=== PATIENT | male | born 1955 | race Caucasian/White ===

== ENCOUNTER 2017-03-03 13:53 | Inpatient (IN) | payer MEDICARE ==
[~2017-03-03] VITALS: Ht 172.7 cm; Wt 127.5 kg
[~2017-03-03 13:53] MED LIST: ALPR0.5T99 PO; AMLO5TAB96 PO; ASPI81 PO; ATOR40TA PO; COZA100T PO; FISHOIL PO; FLUO.05%ST TOP; GLUCTAB PO; LASI20TA PO; NEUR600T PO; OMEP20TA PO; TERA2CAP3 PO; TOPR25TA2 PO; [UNRECOGNIZED DRUG - CODE] TOP
[2017-03-06] MEDS ORDERED: METF1000 PO (08:29)
[2017-03-06] MEDS ORDERED: ALLO100T PO (08:29)
--- NOTE | 2017-03-08 14:27 | MH ---
cc: Saeed BRUCE M.D. DATE OF ADMISSION: 03/13/2017 ADMITTING DIAGNOSIS Osteoarthritic degeneration right knee, now being admitted for right total knee arthroplasty. HISTORY OF PRESENT ILLNESS This pleasant 62-year-old morbidly obese diabetic male who smokes cigarettes is being admitted today for right total knee arthroplasty due to severe painful osteoarthritic degeneration right knee. PAST MEDICAL HISTORY 1. Asthma. 2. Diabetes. 3. Hypertension. 4. Neck and back pain. 5. Skin disorders. 6. Gout. MEDICATIONS Current medications include: 1. Alprazolam. 2. Amlodipine. 3. Atorvastatin. 4. Aspirin 81 mg. 5. Lasix. 6. Gabapentin. 7. Glimepiride. 8. Losartan. 9. Metformin. 10. Metoprolol. 11. Omeprazole. 12. Terazosin. 13. Allopurinol. 14. Fish oil. 15. Diflorasone diacetate. 16. Fluocinonide. PAST SURGICAL HISTORY Rotator cuff repair. SOCIAL HISTORY He does smoke cigarettes. He drinks some alcohol. ALLERGIES He has no known allergies. PHYSICAL EXAMINATION GENERAL: We find a 62-year-old male well-developed, well-nourished, oriented x3 complaining of pain in his right knee. VITAL SIGNS: Blood pressure 124/70, pulse 68 and regular, respirations 18, temperature 98.2, pulse oximetry 97% on room air. HEENT: Eyes PERRLA, EOMI. Ears, nose and mouth clear. NECK: Supple. LUNGS: Clear. HEART: Regular rate. ABDOMEN: Soft. Positive bowel sounds. Nontender. EXTREMITIES: The right knee is tender with crepitance on range of motion. Range of motion from -5 short of full extension to 80 degrees of flexion. He is neurovascularly intact to his toes. IMPRESSION The impression at this time is severe painful osteoarthritic degeneration right knee. PLAN Admission for right total knee arthroplasty today. The patient understands the procedure well and risks involved and understands to use Hibiclens scrub and Bactroban preoperatively. He plans on going home with home health care after surgery. He is given a prescription for postoperative pain and anticoagulation control in the office. Saeed Bruce MD JRR/CALVIN /2:04 PM /2:19 PM
[2017-03-13] MEDS ORDERED: ceFAZolin INJ 1,000 MG VIAL ONE (06:55)
[2017-03-13] MEDS ORDERED: FURO40TA PO (06:59)
[2017-03-13] MEDS ORDERED: GABA600T PO (06:59)
[2017-03-13] MEDS ORDERED: OMEP20TA PO (06:59)
[2017-03-13] MEDS ORDERED: LOSA100T PO (06:59)
[2017-03-13] MEDS ORDERED: [UNRECOGNIZED DRUG - CODE] TOPICAL (06:59)
[2017-03-13] MEDS ORDERED: METO25TA3 PO (06:59)
[2017-03-13] MEDS ORDERED: FISH1000 PO (06:59)
[2017-03-13] MEDS ORDERED: GLIM2TAB PO (06:59)
[2017-03-13] MEDS ORDERED: ATOR40TA16 PO (06:59)
[2017-03-13] MEDS ORDERED: AMLO5TAB2 PO (06:59)
[2017-03-13] MEDS ORDERED: TERA2CAP3 PO (06:59)
[2017-03-13] MEDS ORDERED: FLUO.05%ST TOPICAL (06:59)
[2017-03-13] MEDS ORDERED: ALPR0.5T3 PO (06:59)
[2017-03-13] MEDS ORDERED: ASPI1TAB69 PO (06:59)
[2017-03-13 07:00] VITALS: BP 116/75; PULSE 67; RESP 20; TEMP 98.6; O2SAT 96
[2017-03-13] MEDS ORDERED: POVIDONE IODINE 5% (ANTISEPSIS KIT) 4 APPLICATIONS EACH NARE PRN (07:00)
[2017-03-13] MEDS ORDERED: SODIUM CHLORID 0.9% 500 ML IV PRN (07:00)
[2017-03-13] MEDS ORDERED: INSULIN HUMAN REGULAR 1,000 UNITS/10 ML VIAL SQ PRN (07:00)
[2017-03-13] MEDS ORDERED: TRANEXAMIC ACID IV SCH ×3 (07:00→10:00)
[2017-03-13] MEDS ORDERED: CHLORHEXIDINE GLUCONATE 2 % 1 PACK (2 CLOTHS) TOPICAL PRN (07:00)
[2017-03-13] MEDS ORDERED: ceFAZolin 2 GM PREMIX 50 ML IV SCH (07:00)
[2017-03-13] MEDS ORDERED: SODIUM CHLORIDE 0.9% IV SCH ×3 (07:00→10:00)
[2017-03-13] MEDS ORDERED: METOPROLOL TARTRATE 25 MG TAB PO PRN (07:00)
[2017-03-13] MEDS ORDERED: LACTATED RINGER'S 1000 ML IV PRN (07:00)
[2017-03-13] MEDS ORDERED: CHLORHEXIDINE GLUCONATE 4% SOLN 120 ML BTL TOPICAL SCH (07:00)
[2017-03-13] MEDS ORDERED: BUPIVACAINE LIPOSO PF 1.3% INJ 20 ML, BUPIVACAINE PF 0.25% INJ 20 ML in SODIUM CHLORIDE... P-ARTICULR SCH (08:00)
[2017-03-13] MEDS ORDERED: MIDAZOLAM HCL 2 MG/2 ML VIAL ONE (08:03)
[2017-03-13] MEDS: LACTATED RINGER'S 1000 ML INJ 1,000 ML IV SCH ×2 (08:20→20:12)
--- NOTE | 2017-03-13 08:24 | HHI.FF ---
Face to Face Verification Diagnosis: (1) Status post right knee replacement Physical Therapy Gait training Knee: Total knee, Protocol: Right, Full weight bearing Canvas Knee Splint: When in bed & 2 pillows btw thighs Nursing RN: 3 days/week x 2 weeks Nursing: Klaudia teaching, Dressing changes Dressing Changes: Daily dressing change, 4x4s, Gauze, Paper tape I have seen patient Kamaljit Galeano Sr Martinez on 03/13/17. My clinical findings support the need for the requested home health care services because: Limited ability to care for self High risk of falls I certify that my clinical findings support that this patient is homebound because: Unsteady gait/balance Saeed Bruce MD March 13, 2017 08:24
[2017-03-13] MEDS ORDERED: MISC-163 (08:26)
[2017-03-13] MEDS ORDERED: WALKER WHEELS/F1 MIS (08:26)
[2017-03-13] MEDS ORDERED: CPMMACHINE (08:27)
[2017-03-13] MEDS ORDERED: SODIUM CHLORIDE 0.9% FLUSH 5 ML FLUSH IVF PRN (08:30)
[2017-03-13] MEDS ORDERED: diphenhydrAMINE HCL 50 MG/ML VIAL IV PRN (08:30)
[2017-03-13] MEDS ORDERED: Post-op Orders (for Pharmacy) MISC XX ONE (08:30)
[2017-03-13] MEDS ORDERED: NALOXONE HCL 0.4 MG/ML AMP IV PRN ×2 (08:30)
[2017-03-13] MEDS ORDERED: DIFLORASONE TOPICAL PRN (08:30)
[2017-03-13] MEDS ORDERED: TEMAZEPAM 15 MG CAP PO PRN (08:30)
[2017-03-13] MEDS ORDERED: ALLOPURINOL 100 MG TAB PO PRN (08:30)
[2017-03-13] MEDS ORDERED: ONDANSETRON HCL 4 MG/2 ML VIAL IVP PRN (08:30)
[2017-03-13] MEDS ORDERED: FLUOCINONIDE TOPICAL PRN (08:30)
[2017-03-13] MEDS ORDERED: ACETAMINOPHEN/HYDROcodone 325 MG/7.5 MG TAB PO PRN ×2 (08:30)
[2017-03-13] MEDS: ALPRAZolam 0.5 MG TAB PO SCH (09:00)
[2017-03-13] MEDS: ATORVASTATIN 40 MG TAB PO SCH (09:00)
[2017-03-13] MEDS: metFORMIN HCL 500 MG TAB PO SCH ×2 (09:00→15:58)
[2017-03-13] MEDS: METOPROLOL TARTRATE 25 MG TAB PO SCH ×2 (09:00→20:12)
[2017-03-13] MEDS: amLODIPine BESYLATE 5 MG TAB PO SCH (09:00)
[2017-03-13] MEDS: LOSARTAN 50 MG TAB PO SCH (09:00)
[2017-03-13] MEDS: ASPIRIN EC 81 MG TABEC PO SCH (09:00)
[2017-03-13] MEDS: FUROSEMIDE 40 MG TAB PO SCH (09:00)
[2017-03-13] MEDS: SODIUM CHLORIDE 0.9% FLUSH 5 ML FLUSH IVF SCH ×2 (09:00→20:12)
[2017-03-13] MEDS: PANTOPRAZOLE SOD 20 MG DELAYED RELEASE TAB PO SCH (09:00)
[2017-03-13] MEDS ORDERED: NON-FORMULARY DRUG (Omega-3 Fatty Acids (Fish Oil) 1 CAP) PO SCH (09:00)
[2017-03-13] MEDS: GABAPENTIN 300 MG CAP PO SCH ×2 (09:00→20:12)
[2017-03-13] MEDS ORDERED: BUPIVACAINE HCL PF 0.5% 30 ML VIAL NERV BLOCK ONE (11:34)
[2017-03-13] MEDS ORDERED: fentaNYL CITRATE 250 MCG/5 ML AMP ONE (11:42)
[2017-03-13] MEDS: MORPHINE SULFATE 30 MG/30 ML PCA IV SCH ×2 (11:44→20:14)
[2017-03-13] MEDS ORDERED: *morphine SULFATE 8 MG/ML PERIprocedure ONLY ONE (11:51)
[2017-03-13] MEDS ORDERED: PROPOFOL 200 MG/20 ML AMP IV ONE (12:00)
[2017-03-13] MEDS ORDERED: PHENYLEPH/NS 1000 MCG/10 ML SYR IV ONE (12:00)
[2017-03-13] MEDS ORDERED: LACTATED RINGER'S 1000 ML INJ 1,000 ML IV ONE (12:00)
[2017-03-13] MEDS ORDERED: NEOSTIGMINE 3 MG/3 ML SYR IV ONE (12:00)
[2017-03-13] MEDS ORDERED: ePHEDrine/NS 25 MG/5 ML SYR IV ONE (12:00)
[2017-03-13] MEDS ORDERED: ONDANSETRON HCL 4 MG/2 ML VIAL IV PUSH ONE (12:00)
[2017-03-13] MEDS: PCA - TOTAL MG DILAUDID DELIVERED PER SHIFT SCH ×2 (12:03→21:36)
--- NOTE | 2017-03-13 12:44 | RADRPT ---
EXAM DATE/TIME: 03/13/2017 11:50 [facility] COMPARISON: No previous studies available for comparison. INDICATIONS : Post operative right knee. MEDICAL HISTORY : None. SURGICAL HISTORY : None. ENCOUNTER: Initial ACUITY: 1 day PAIN SCORE: Non-responsive. LOCATION: Right knee. FINDINGS: Right total knee arthroplasty is present. Hardware is intact. Alignment is anatomic. CONCLUSION: Satisfactory appearance post right TKA Sergey Pandey MD on March 13, 2017 at 12:41 Board Certified Radiologist. This report was verified electronically.
[2017-03-13 13:00] VITALS: BP 116/78; PULSE 84; RESP 21; TEMP 95.6; O2SAT 96
[2017-03-13] MEDS: PCA - TOTAL MG MORPHINE DELIVERED PER SHIFT SCH ×2 (13:18→21:36)
--- NOTE | 2017-03-13 15:30 | PD.CONS ---
HPI Service [facility] Hospitalists Consult Requested By Dr. Seth Bruce Reason for Consult Medical Management Primary Care Physician Elmer Jimenez MD Diagnoses: History of Present Illness Ms. Henriquez is a pleasant 62 y/o female with HTN, diabetes, GERD, hyperlipidemia, osteoarthritis and hx of lacunar infarct remotely. She was admitted to [facility] on 03/13/17 for right knee arthroplasty performed by Dr. Bruce. [facility] Hospitalist team was consulted to help with managing the pts chronic medical issues. She is seen post -operatively and is without any specific complaints. Review of Systems Constitutional: DENIES: Fever, Chills Cardiovascular: DENIES: Chest pain, Lower Extremity Edema Gastrointestinal: DENIES: Abdominal pain, Nausea, Vomiting Genitourinary: DENIES: Hematuria Musculoskeletal: COMPLAINS OF: Joint pain Integumentary: DENIES: Rash Neurologic: DENIES: Headache Psychiatric: DENIES: Confusion Past Family Social History Past Medical History Hypertension Hyperlipidemia Type II diabetes mellitus with neuropathy, HgA1C was 5.7 on 12-05-16 Fatty liver GERD Osteoarthritis BPH Anxiety Psoriasis Hx of gout Carotid artery disease Hx of lacunar stroke Chronic lower back pain: Cervical stenosis/chronic neck pain: Hx of transient thrombocytopenia Vitamin D insufficiency Morbid obesity Hx of colon polyps Incidental pulmonary nodule, A CT scan of the abdomen on 06-26-16 showed a 5-6mm right lung nodule. A CT scan of the thorax on 12-23-16 showed a stable 5-7mm of the right mid lung. Past Surgical History Anal fistula repair Rotator cuff repair EGD/colonoscopy Reported Medications -Diflorasone Topical 0.05% Oint 1 Applic TOPICAL BID PRN -Fluocinonide Topical 0.05% Soln 1 Applic TOPICAL DAILY PRN -Fish Oil 1,000 Mg Cap 1 Cap PO BID -Terazosin 2 Mg PO HS -Omeprazole 20 Mg PO DAILY -Losartan 100 Mg PO DAILY -Aspirin 81 Mg PO DAILY -Amlodipine 5 Mg PO DAILY -Alprazolam 0.25 Mg PO DAILY PRN Anxiety -Metoprolol Tartrate 25 Mg PO BID Allopurinol 100 Mg Tab 100 Mg PO DAILY PRN -Metformin 1,000 Mg PO BIDPC --Glimepiride 2 Mg PO DAILY --Gabapentin 600 Mg PO TID PRN --Furosemide 40 Mg PO DAILY PRN edema --Atorvastatin 40 Mg PO HS Allergies: Coded Allergies: No Known Allergies (Verified , 03/13/17) Family History Noncontributory Social History (+)Regular alcohol use, 18-20 beers per week (+)Tobacco use, one can of chewing tobacco per day since age 24 Hx of smoking, 1-2ppd from age [age] Pt is Physical Exam Vital Signs Vital Signs Date Time Temp Pulse Resp B/P Pulse Ox O2 Delivery O2 Flow Rate FiO2 03/13/17 13:00 95.6 84 21 116/78 96 03/13/17 12:15 85 20 118/67 100 Room Air 03/13/17 12:00 86 12 124/75 98 Nasal Cannula 2 03/13/17 12:00 86 17 124/75 98 Room Air 03/13/17 11:45 87 17 123/68 98 Nasal Cannula 2 03/13/17 11:45 87 17 123/68 98 Room Air 03/13/17 11:44 15 03/13/17 11:38 99.1 91 17 122/81 98 03/13/17 11:38 99.1 91 17 122/81 98 Nasal Cannula 2 03/13/17 07:00 98.6 67 20 116/75 96 Physical Exam GENERAL: This is a well-nourished, well-developed patient, in no apparent distress. HEENT: Atraumatic. Normocephalic. No temporal or scalp tenderness. No scleral icterus. Airway patent. NECK: Trachea midline, supple, nontender. CARDIO: Regular. RESP: CTA bilaterally. No wheezes, rales, or rhonchi. ABD: +BS, soft, non-tender, nondistended. EXT: Right knee bandages are c/d/i NEURO: Awake and alert. Motor and sensory grossly within normal limits. Normal speech. Laboratory Laboratory Tests Test 03/13/17 06:55 Blood Type A POSITIVE Antibody Screen NEGATIVE Blood Bank Comment Imaging Last Impressions Knee X-Ray 03/13/17 0820 Signed Impressions: Service Date/Time: Monday, March 13, 2017 11:50 - CONCLUSION: Satisfactory appearance post right TKA Sergey Pandey MD Assessment and Plan Problem List: (1) Status post right knee replacement Status: Acute Plan: - Pt s/p right total knee arthroplasty on 03/13/[address] Bruce - Post-op pain control per Ortho - PT daily - IS - Constipation precautions - DVT prophylaxis (2) Diabetes Status: Chronic Plan: - NovoLog SSI - Pt takes Metformin 1000mg po BID and Amaryl 2mg po Daily (3) HTN (hypertension), benign Status: Chronic Plan: - Home meds continued - Monitor (4) Asthma Status: Acute Assessment and Plan Patient examined. Assessment and plan formulated with Lois Moore PA-C. I agree with the above. S/P RIGHT TKA. PT CONCERNED ABOUT URINE RETENTION. HE IS HOPING TO AVOID CATHETERIZATION. HYTRIN AND LASIX ORDERED NOW AND NURSING WILL MONITOR WITH BLADDER SCAN. Problem Qualifiers (1) Diabetes: Lois Moore March 13, 2017 15:30 Seth Vargas MD March 13, 2017 21:00
[2017-03-13 15:58] VITALS: BP 139/73; PULSE 93; TEMP 95.6; O2SAT 99
[2017-03-13] MEDS ORDERED: GLIMEPIRIDE 2 MG TAB PO SCH (16:00)
[2017-03-13 16:28] VITALS: O2SAT 99
[2017-03-13] MEDS ORDERED: FUROSEMIDE 20 MG TAB PO STA (17:11)
[2017-03-13] MEDS ORDERED: TERAZOSIN HCL 1 MG CAP PO ONE (17:15)
[2017-03-13] MEDS ORDERED: DEXTROSE 50% IN WATER 50 ML VIAL(D50) IV PUSH PRN (17:15)
[2017-03-13] MEDS ORDERED: GLUCAGON 1 MG/ML VIAL OTHER PRN (17:15)
[2017-03-13 20:00] VITALS: BP 136/76; PULSE 95; RESP 18; TEMP 98.8; O2SAT 95
[2017-03-13] MEDS: TERAZOSIN HCL 1 MG CAP PO SCH (20:12)
[2017-03-13] MEDS: MAGNESIUM HYDROXIDE SUSP 30 ML CUP PO SCH (20:12)
[2017-03-13] MEDS: POLYETHYLENE GLYCOL 17 GM PKG PO SCH (20:12)
[2017-03-13] MEDS: INSULIN ASPART SUPPLEMENTAL SCALE SQ SCH (20:12)
[2017-03-13] MEDS ORDERED: BETAMETHASONE DIPROPIONATE 0.05% CREAM 15 GM TOPICAL PRN (23:00)
[2017-03-14] VITALS (12 sets, daily range): BP systolic 67–127; BP diastolic 46–69; PULSE 87–116; RESP 16–19; TEMP 95.4–99.6; O2SAT 92–100
[2017-03-14] MEDS: PCA - TOTAL MG DILAUDID DELIVERED PER SHIFT SCH ×4 (06:00→23:57)
[2017-03-14] MEDS: PCA - TOTAL MG MORPHINE DELIVERED PER SHIFT SCH ×4 (06:10→23:57)
[2017-03-14] MEDS: INSULIN ASPART SUPPLEMENTAL SCALE SQ SCH ×4 (06:11→21:13)
[2017-03-14 08:46] LABS: HEMATOCRIT 35.4 % (39.0-51.0); REVIEW FLAG FINAL
[2017-03-14] MEDS: MAGNESIUM HYDROXIDE SUSP 30 ML CUP PO SCH ×2 (08:50→21:01)
[2017-03-14] MEDS: GABAPENTIN 300 MG CAP PO SCH ×2 (08:51→21:01)
[2017-03-14] MEDS: ALPRAZolam 0.5 MG TAB PO SCH (08:51)
[2017-03-14] MEDS: ASPIRIN EC 81 MG TABEC PO SCH (08:51)
[2017-03-14] MEDS: METOPROLOL TARTRATE 25 MG TAB PO SCH (08:51)
[2017-03-14] MEDS: PANTOPRAZOLE SOD 20 MG DELAYED RELEASE TAB PO SCH (08:51)
[2017-03-14] MEDS: FUROSEMIDE 40 MG TAB PO SCH (08:51)
[2017-03-14] MEDS: ATORVASTATIN 40 MG TAB PO SCH (08:51)
[2017-03-14] MEDS: amLODIPine BESYLATE 5 MG TAB PO SCH (08:51)
[2017-03-14] MEDS: metFORMIN HCL 500 MG TAB PO SCH (08:52)
[2017-03-14] MEDS: LOSARTAN 50 MG TAB PO SCH (08:52)
[2017-03-14] MEDS: POLYETHYLENE GLYCOL 17 GM PKG PO SCH ×2 (08:53→21:00)
[2017-03-14] MEDS: SODIUM CHLORIDE 0.9% FLUSH 5 ML FLUSH IVF SCH ×2 (08:53→21:00)
[2017-03-14] MEDS: ENOXAPARIN SODIUM 30 MG/0.3 ML SYRINGE SQ SCH ×2 (08:57→21:02)
[2017-03-14] MEDS ORDERED: GLIMEPIRIDE 2 MG TAB PO SCH (09:00)
[2017-03-14] MEDS ORDERED: SODIUM CHLOR 0.9% 1000 ML INJ 1,000 ML IV ONE (10:00)
[2017-03-14] MEDS ORDERED: RESP: ALBUTEROL 2.5 MG/IPRATROPIUM 0.5 MG NEB (SCH) NEB STA (10:00)
--- NOTE | 2017-03-14 10:08 | MP ---
cc: Saeed BRUCE M.D. DATE OF SURGERY 03/13/2017 PREOPERATIVE DIAGNOSIS Osteoarthritic degeneration right knee. POSTOPERATIVE DIAGNOSIS Osteoarthritic degeneration right knee. SURGERY PERFORMED Right total knee arthroplasty using Consensus components, size 5 femur, 4 tibia, 10 insert, with a size 2 x 7.5-mm patella with two batches of cobalt blue cement. SURGEON Dr. Bruce ASSOCIATE PRINCIPAL SERA Chiu ANESTHESIA General intubation and block. PROCEDURE After successful induction of anesthesia, the patient is placed on the operating room table in the supine position. The knee is prepped and draped in the usual manner. A tourniquet is inflated at the upper thigh and set to 300 mmHg pressure after exsanguination of the lower extremity. A longitudinal incision is made extending from 3 inches proximal to the superior pole of the patella, across the patella in longitudinal fashion, and down past the insertion of the tibial tubercle into the proximal tibia. The incision is carried down through subcutaneous tissue along the medial aspect of the patella and retinaculum, down through the capsule to expose the knee joint. The patella and patellar tendon are freed up enough to allow the patella to be inverted and retracted off the lateral side of the knee joint. The knee joint is left exposed. Small osteophytes are removed. All soft tissue is removed to allow proper position of the femoral and tibial cutting jig guide. The first femoral jig is then inserted along the distal end of the femur after first measuring to decide whether this is a small, medium, or large component. The notch is then drilled and the tibial cutting guide inserted into the femoral cutting guide, along with the ankle brace to allow for proper measurement of the tibial cutting surface that needed to be resected. Pins are inserted into the tibial cutting jig and femoral cutting jig to hold them in place. An oscillating saw is then used to resect the surface of the tibia. The surface of the tibia is then completely removed using sharp and blunt dissection. The anterior and posterior cuts of the femur are then made as well using an oscillating saw through the cutting guide. All guides are then removed and the varus/valgus angulation cutting guide applied to the femur for proper measurement of the proper amount of valgus. The anterior cutting guide for the femur is then inserted at the anterior femoral cuts made. Next, the first block trial is inserted into the femur to allow for proper condyle drill holes to be made which are then made followed by removal of the bone between the condyles using an oscillating saw as well as the bone removed at the most posterior surface of the condyle. After this, this guide is removed and the chamfer cuts made using the chamfer cutting guide from both anterior and posterior. Next, the femoral trial is then inserted, the tibial surface reflected anterior to expose the tibial surface and a tibial stem guide is inserted after first measuring for a standard, standard plus, large, or large plus surface to be used. After the stem is impacted the trial tibial surface is applied followed by the trial meniscal components. After full range of motion is found with the appropriate length meniscal components varying the patella is prepared by resecting the posterior aspect of the patella using an oscillating saw, inserting a trial. The trial is then removed and the cruciate cutting guide applied using the bur to cut the cruciate cuts. After cruciate cuts are made all trials are removed. The wound is irrigated copiously with antibiotic solution and Water Pik and the actual components inserted into place using Consensus components, size 5 femur, 4 tibia, 10 insert, with a size 2 x 7.5-mm patella. After the cement has hardened and the components are found to have full range of motion with no instability, no tourniquet utilized except for cementing and the total tourniquet time there was 11 minutes at 300 mmHg pressure. Meticulous hemostasis was achieved, 120 cc of Exparel inserted around the knee joint for extra pain control. The deep fascia was approximated with running #2 Quill, the subcutaneous tissue approximated using interrupted and running 2-0 and 4-0 Monocryl sutures, Steri-Strips, sterile dressing and knee immobilizer. DRAINS No drains utilized. ESTIMATED BLOOD LOSS 150 cc. COUNTS Sponge and suture counts were correct. The patient tolerated the procedure well and left the Operating Room in satisfactory condition. J. MD MARY Johnson/MICHEAL /11:23 AM /9:59 AM
--- NOTE | 2017-03-14 11:22 | HHI.PR ---
Subjective Remarks erwin called for low bp sbp 60s he was out of bed working with PT Objective Vitals heart reg lung cta abd s/nt ext no pitting Vital Signs Date Time Temp Pulse Resp B/P Pulse Ox O2 Delivery O2 Flow Rate FiO2 03/14/17 09:57 97 Nasal Cannula 3.00 03/14/17 09:50 88 89/69 97 03/14/17 09:45 87 87/53 95 03/14/17 09:40 89 67/46 93 03/14/17 09:40 Nasal Cannula 2.00 03/14/17 07:29 98.5 116 19 127/69 92 03/14/17 07:26 Room Air 03/14/17 06:10 16 03/14/17 04:00 99.0 97 16 99/53 96 03/14/17 00:00 99.6 113 19 113/61 92 03/13/17 20:14 18 03/13/17 20:00 98.8 95 18 136/76 95 03/13/17 16:28 99 Nasal Cannula 2.00 03/13/17 15:58 95.6 93 139/73 99 03/13/17 13:00 95.6 84 21 116/78 96 03/13/17 12:15 85 20 118/67 100 Room Air 03/13/17 12:00 86 12 124/75 98 Nasal Cannula 2 03/13/17 12:00 86 17 124/75 98 Room Air 03/13/17 11:45 87 17 123/68 98 Nasal Cannula 2 03/13/17 11:45 87 17 123/68 98 Room Air 03/13/17 11:44 15 03/13/17 11:38 99.1 91 17 122/81 98 03/13/17 11:38 99.1 91 17 122/81 98 Nasal Cannula 2 03/13/17 03/13/17 03/14/17 15:00 23:00 07:00 Intake Total 1400 ml 1445 ml 1032 ml Output Total 150 ml Balance 1250 ml 1445 ml 1032 ml Intake Oral 720 ml 480 ml IV Total 725 ml 552 ml Other 1400 ml Output Estimated Blood Loss 150 ml # Voids 1 4 # Bowel Movements 0 0 Result Diagram: 03/14/17 0745 Imaging Last Impressions Knee X-Ray 03/13/17 0820 Signed Impressions: Service Date/Time: Monday, March 13, 2017 11:50 - CONCLUSION: Satisfactory appearance post right TKA Sergey Pandey MD A/P Problem List: (1) Status post right knee replacement Status: Acute Plan: - Pt s/p right total knee arthroplasty on 03/13/[address] Bruce - Post-op pain control per Ortho - PT daily - IS - DVT prophylaxis required straight cath last night for 700cc retention had hypotension this AM sbp 60s..felt to be combination of bp and pain meds. could be a little volume depleted. also it occured when getting out of bed with PT. ivf bolus running. bp slowly improving. hold bp meds stat bmp pending. updated at bedside. (2) Diabetes Status: Chronic Plan: - NovoLog SSI - Pt takes Metformin 1000mg po BID and Amaryl 2mg po Daily (3) HTN (hypertension), benign Status: Chronic Plan: - Home meds continued - Monitor (4) Asthma Status: Chronic Problem Qualifiers (1) Diabetes: Seth Vargas MD March 14, 2017 11:22
--- NOTE | 2017-03-14 11:43 | PD.ORT.PN ---
Subjective Subjective Remarks pt comfortable at present, lying in bed. Objective Vitals Vital Signs Date Time Temp Pulse Resp B/P Pulse Ox O2 Delivery O2 Flow Rate FiO2 03/14/17 11:31 95.4 89 19 97/64 98 03/14/17 09:57 97 Nasal Cannula 3.00 03/14/17 09:50 88 89/69 97 03/14/17 09:45 87 87/53 95 03/14/17 09:40 89 67/46 93 03/14/17 09:40 Nasal Cannula 2.00 03/14/17 07:29 98.5 116 19 127/69 92 03/14/17 07:26 Room Air 03/14/17 06:10 16 03/14/17 04:00 99.0 97 16 99/53 96 03/14/17 00:00 99.6 113 19 113/61 92 03/13/17 20:14 18 03/13/17 20:00 98.8 95 18 136/76 95 03/13/17 16:28 99 Nasal Cannula 2.00 03/13/17 15:58 95.6 93 139/73 99 03/13/17 13:00 95.6 84 21 116/78 96 03/13/17 12:15 85 20 118/67 100 Room Air 03/13/17 12:00 86 12 124/75 98 Nasal Cannula 2 03/13/17 12:00 86 17 124/75 98 Room Air 03/13/17 11:45 87 17 123/68 98 Nasal Cannula 2 03/13/17 11:45 87 17 123/68 98 Room Air 03/13/17 11:44 15 I/O 03/13/17 03/13/17 03/13/17 03/14/17 03/14/17 03/14/17 07:00 15:00 23:00 07:00 15:00 23:00 Intake Total 1400 ml 1445 ml 1032 ml Output Total 150 ml Balance 1250 ml 1445 ml 1032 ml Intake Oral 720 ml 480 ml IV Total 725 ml 552 ml Other 1400 ml Output Estimated Blood Loss 150 ml # Voids 1 4 # Bowel Movements 0 0 Result Diagram: 03/14/17 0745 Objective Remarks dressing dry and intact. No calf tenderness. Assessment & Plan Ortho Post Op Day #: 1 Problem List: Assessment and Plan watch BP, daily wound care and PT. Saeed Bruce MD March 14, 2017 11:43
[2017-03-14] MEDS ORDERED: LORATADINE 10 MG TAB PO ONE (13:00)
[2017-03-14 13:05] LABS: BICARBONATE 27.7 MEQ/L (21.0-32.0); POTASSIUM 4.2 MEQ/L (3.5-5.1)
[2017-03-14] MEDS: RESP: ALBUTEROL 2.5 MG/IPRATROPIUM 0.5 MG NEB (SCH) NEB ×2 (15:59→19:32)
[2017-03-14] MEDS: SODIUM CHLOR 0.9% 1000 ML INJ 1,000 ML IV SCH ×2 (17:28→23:57)
[2017-03-14] MEDS: TERAZOSIN HCL 1 MG CAP PO SCH (21:00)
[2017-03-14] MEDS: DOCUSATE SODIUM 100 MG CAP PO SCH (21:01)
[2017-03-14] MEDS: MULTIVITAMINS/MINERALS THERAPEUTIC TAB PO SCH (21:01)
[2017-03-14] MEDS ORDERED: BETAMETHASONE DIPROPIONATE 0.05% OINT 15 GM TUBE TOPICAL PRN (22:00)
[2017-03-15] VITALS (9 sets, daily range): BP systolic 109–164; BP diastolic 54–79; PULSE 96–115; RESP 16–17; TEMP 95.3–101.5; O2SAT 94–99
[2017-03-15] MEDS: INSULIN ASPART SUPPLEMENTAL SCALE SQ SCH ×4 (06:10→20:40)
[2017-03-15 07:14] LABS: HEMATOCRIT 28.6 % (39.0-51.0); REVIEW FLAG FINAL
[2017-03-15 07:40] LABS: BICARBONATE 28.5 MEQ/L (21.0-32.0); POTASSIUM 3.9 MEQ/L (3.5-5.1)
[2017-03-15] MEDS: RESP: ALBUTEROL 2.5 MG/IPRATROPIUM 0.5 MG NEB (SCH) NEB ×4 (08:22→20:04)
--- NOTE | 2017-03-15 08:25 | PD.ORT.PN ---
Subjective Subjective Remarks pt complaining of bed being uncomfortable. Objective Vitals Vital Signs Date Time Temp Pulse Resp B/P Pulse Ox O2 Delivery O2 Flow Rate FiO2 03/15/17 08:12 99.0 103 16 122/60 98 03/15/17 04:35 98.6 101 17 109/54 98 03/15/17 00:40 100.8 96 17 117/57 99 03/14/17 21:01 Nasal Cannula 2.00 03/14/17 20:40 99.5 93 18 112/59 100 03/14/17 16:00 98.0 90 19 99/58 100 03/14/17 15:59 93 Nasal Cannula 2.00 03/14/17 11:50 98 Nasal Cannula 2.00 03/14/17 11:31 95.4 89 19 97/64 98 03/14/17 09:57 97 Nasal Cannula 3.00 03/14/17 09:50 88 89/69 97 03/14/17 09:45 87 87/53 95 03/14/17 09:40 89 67/46 93 03/14/17 09:40 Nasal Cannula 2.00 I/O 03/14/17 03/14/17 03/14/17 03/15/17 03/15/17 03/15/17 07:00 15:00 23:00 07:00 15:00 23:00 Intake Total 1032 ml 1420 ml 240 ml 120 ml Output Total 700 ml 500 ml 1800 ml Balance 1032 ml 720 ml -260 ml -1680 ml Intake Oral 480 ml 520 ml 240 ml 120 ml IV Total 552 ml 900 ml Output Urine Total 700 ml 500 ml 1800 ml Bladder Scan Volume Amount 500 ml # Voids 4 # Bowel Movements 0 0 0 0 Result Diagram: 03/15/17 0640 03/15/17 0640 Objective Remarks dressing dry and intact. No calf tenderness. Sitting up in chair today. Assessment & Plan Ortho Post Op Day #: 2 Problem List: Assessment and Plan watch BP, daily wound care and PT. New bed if possible. SHEMAR Vaughn. Home possibly tomorrow. Saeed Bruce MD March 15, 2017 08:25
[2017-03-15] MEDS: ATORVASTATIN 40 MG TAB PO SCH (09:51)
[2017-03-15] MEDS: LORATADINE 10 MG TAB PO SCH (09:51)
[2017-03-15] MEDS: ALPRAZolam 0.5 MG TAB PO SCH (09:52)
[2017-03-15] MEDS: PANTOPRAZOLE SOD 20 MG DELAYED RELEASE TAB PO SCH (09:52)
[2017-03-15] MEDS: ASPIRIN EC 81 MG TABEC PO SCH (09:52)
[2017-03-15] MEDS: DOCUSATE SODIUM 100 MG CAP PO SCH ×2 (09:52→20:31)
[2017-03-15] MEDS: GLIMEPIRIDE 2 MG TAB PO SCH (09:52)
[2017-03-15] MEDS: GABAPENTIN 300 MG CAP PO SCH ×2 (09:53→20:31)
[2017-03-15] MEDS: MAGNESIUM HYDROXIDE SUSP 30 ML CUP PO SCH ×2 (09:53→20:31)
[2017-03-15] MEDS: POLYETHYLENE GLYCOL 17 GM PKG PO SCH ×2 (09:53→20:31)
[2017-03-15] MEDS: MULTIVITAMINS/MINERALS THERAPEUTIC TAB PO SCH ×2 (09:53→20:31)
[2017-03-15] MEDS: SODIUM CHLORIDE 0.9% FLUSH 5 ML FLUSH IVF SCH ×2 (09:57→20:31)
[2017-03-15] MEDS: ENOXAPARIN SODIUM 30 MG/0.3 ML SYRINGE SQ SCH ×2 (10:08→20:32)
[2017-03-15] MEDS ORDERED: BACITRACIN OINT 0.9 GM PKT TOP PRN (10:15)
--- NOTE | 2017-03-15 12:52 | HHI.PR ---
Subjective Remarks doing better. Objective Vitals heent neg heart reg lung cta abd s/nt Vital Signs Date Time Temp Pulse Resp B/P Pulse Ox O2 Delivery O2 Flow Rate FiO2 03/15/17 08:22 99 Nasal Cannula 2.00 03/15/17 08:12 99.0 103 16 122/60 98 03/15/17 04:35 98.6 101 17 109/54 98 03/15/17 00:40 100.8 96 17 117/57 99 03/14/17 21:01 Nasal Cannula 2.00 03/14/17 20:40 99.5 93 18 112/59 100 03/14/17 16:00 98.0 90 19 99/58 100 03/14/17 15:59 93 Nasal Cannula 2.00 03/14/17 03/14/17 03/15/17 15:00 23:00 07:00 Intake Total 1420 ml 240 ml 120 ml Output Total 700 ml 500 ml 1800 ml Balance 720 ml -260 ml -1680 ml Intake Oral 520 ml 240 ml 120 ml IV Total 900 ml Output Urine Total 700 ml 500 ml 1800 ml Bladder Scan Volume Amount 500 ml # Bowel Movements 0 0 0 Result Diagram: 03/15/17 0640 03/15/17 0640 Imaging Last Impressions Knee X-Ray 03/13/17 0820 Signed Impressions: Service Date/Time: Monday, March 13, 2017 11:50 - CONCLUSION: Satisfactory appearance post right TKA Sergey Pandey MD A/P Problem List: (1) Status post right knee replacement Status: Acute Plan: - Pt s/p right total knee arthroplasty on 03/13/[address] Bruce - Post-op pain control per Ortho - PT daily - IS - DVT prophylaxis post op developed hypotension and urine retention. then had halicat. found to have priya. bp and priya improving with ivf. hold bp meds. ivf and check cr in AM before d/c home (2) Diabetes Status: Chronic Plan: - NovoLog SSI - Pt takes Metformin 1000mg po BID and Amaryl 2mg po Daily (3) HTN (hypertension), benign Status: Chronic Plan: see above (4) Asthma Status: Chronic Problem Qualifiers (1) Diabetes: Seth Vargas MD March 15, 2017 12:52
[2017-03-15] MEDS: SODIUM CHLOR 0.9% 1000 ML INJ 1,000 ML IV SCH (13:00)
[2017-03-15] MEDS: PCA - TOTAL MG MORPHINE DELIVERED PER SHIFT SCH ×2 (14:00→20:41)
[2017-03-15] MEDS: PCA - TOTAL MG DILAUDID DELIVERED PER SHIFT SCH ×2 (14:00→20:41)
[2017-03-15] MEDS: ACETAMINOPHEN 325 MG TAB PO PRN (20:31)
[2017-03-15] MEDS: TERAZOSIN HCL 1 MG CAP PO SCH (20:31)
[2017-03-15] MEDS ORDERED: cloNIDine HCL 0.1 MG TAB PO PRN (21:15)
[2017-03-16] VITALS (7 sets, daily range): BP systolic 118–136; BP diastolic 60–75; PULSE 97–112; RESP 17–18; TEMP 98.2–100.4; O2SAT 93–98
[2017-03-16 00:01] LABS: AUTOMATED NEUTROPHIL # 5.5 TH/MM3 (1.8-7.7); BASOPHIL % 0.2 % (0.0-2.0); EOSINOPHIL % 0.1 % (0.0-4.0); HEMATOCRIT 26.9 % (39.0-51.0); HEMO FLAGS DIFF FINAL; LYMPH % 14.1 % (9.0-44.0); MEAN CELL VOLUME 86.6 FL (80.0-100.0); MEAN CORPUSCULAR HEMOGLOBIN 29.8 PG (27.0-34.0); MEAN CORPUSCULAR HGB CONC 34.4 % (32.0-36.0); MONO % 8.9 % (0.0-8.0); NEUT % 76.7 % (16.0-70.0); PLATELET COUNT 108 TH/MM3 (150-450); RED BLOOD COUNT 3.11 MIL/MM3 (4.50-5.90); RED CELL DISTRIBUTION WIDTH 13.2 % (11.6-17.2); WHITE BLOOD COUNT 7.1 TH/MM3 (4.0-11.0)
[2017-03-16] MEDS: PCA - TOTAL MG DILAUDID DELIVERED PER SHIFT SCH ×2 (00:12→14:00)
[2017-03-16] MEDS: PCA - TOTAL MG MORPHINE DELIVERED PER SHIFT SCH ×2 (00:13→14:00)
--- NOTE | 2017-03-16 01:02 | HHI.PR ---
Subjective Remarks Called about patient having increased temperature ,feeling warm all over s/p total knee arthroplasty who had post op hypotension. In review has had low grade temp throughout day. Patient without any SOB,chest pain some warmth at knee but not more then the rest of his body. no nausea no other symptoms. Objective Vitals GENERAL: SKIN: Warm and dry. HEAD: Atraumatic. Normocephalic. EYES: Pupils equal and round. No scleral icterus. No injection or drainage. ENT: No nasal bleeding or discharge. Mucous membranes pink and moist. NECK: Trachea midline. No JVD. CARDIOVASCULAR: Regular rate and rhythm. RESPIRATORY: No accessory muscle use. Clear to auscultation. Breath sounds equal bilaterally. GASTROINTESTINAL: Abdomen soft, non-tender, nondistended. Hepatic and splenic margins not palpable. MUSCULOSKELETAL: Extremities without clubbing, cyanosis, or edema. No obvious deformities. NEUROLOGICAL: Awake and alert. No obvious cranial nerve deficits. Motor grossly within normal limits. Five out of 5 muscle strength in the arms and legs. Normal speech. Vital Signs Date Time Temp Pulse Resp B/P Pulse Ox O2 Delivery O2 Flow Rate FiO2 03/15/17 23:00 101.5 03/15/17 20:15 100.5 115 17 134/66 95 03/15/17 20:02 94 21 03/15/17 16:00 97.9 104 16 164/79 96 03/15/17 12:20 95.3 99 16 118/59 99 03/15/17 08:22 99 Nasal Cannula 2.00 03/15/17 08:12 99.0 103 16 122/60 98 03/15/17 04:35 98.6 101 17 109/54 98 03/15/17 03/15/17 03/16/17 15:00 23:00 07:00 Intake Total 1280 ml 240 ml Output Total 1100 ml Balance 180 ml 240 ml Intake Oral 1280 ml 240 ml Output Urine Total 1100 ml # Voids 3 1 # Bowel Movements 0 Result Diagram: 03/15/17 7637 03/15/17 0640 Imaging Last Impressions Knee X-Ray 03/13/17 0820 Signed Impressions: Service Date/Time: Monday, March 13, 2017 11:50 - CONCLUSION: Satisfactory appearance post right TKA Sergey Pandey MD A/P Problem List: (1) Status post right knee replacement Status: Acute Plan: - Pt s/p right total knee arthroplasty on 03/13/[address] Bruce - Post-op pain control per Ortho - PT daily - IS - DVT prophylaxis post op developed hypotension and urine retention. then had halicat. found to have priya. bp and priya improving with ivf. hold bp meds. ivf and check cr in AM before d/c home (2) Diabetes Status: Chronic Plan: - NovoLog SSI - Pt takes Metformin 1000mg po BID and Amaryl 2mg po Daily (3) HTN (hypertension), benign Status: Chronic Plan: see above (4) Asthma Status: Chronic (5) Fever Status: Acute Plan: no sign of obvious source cbc is unremarkable and have ordered blood cultures will get chest xray portable in am . Patient just finished antibiotics yesterday will follow temp curve and medical will restart if necessary Assessment and Plan as above Problem Qualifiers (1) Diabetes: Bird Stringer MD March 16, 2017 01:02
[2017-03-16] MEDS: SODIUM CHLOR 0.9% 1000 ML INJ 1,000 ML IV SCH (01:12)
[2017-03-16] MEDS: INSULIN ASPART SUPPLEMENTAL SCALE SQ SCH ×3 (06:27→16:00)
[2017-03-16 07:05] LABS: BICARBONATE 29.4 MEQ/L (21.0-32.0); POTASSIUM 3.6 MEQ/L (3.5-5.1)
--- NOTE | 2017-03-16 07:12 | RADRPT ---
EXAM DATE/TIME: 03/16/2017 06:25 [facility] COMPARISON: No previous studies available for comparison. INDICATIONS : Fever, short of breath, status post right knee replacement MEDICAL HISTORY : Hypertension. Gastroesophageal reflux disease. Diabetes mellitus type II. hiatal hernia SURGICAL HISTORY : Right knee replacement ENCOUNTER: Subsequent ACUITY: 2 days PAIN SCORE: 0/10 LOCATION: Bilateral chest FINDINGS: A single view of the chest demonstrates the lungs to be symmetrically aerated without evidence of mas s, infiltrate or effusion. The cardiomediastinal contours are unremarkable. Osseous structures are intact. There is mild scoliosis of the thoracic and lumbar spine. CONCLUSION: No acute disease. There is no evidence of pneumonia. Javi Lane MD on March 16, 2017 at 7:09 Board Certified Radiologist. This report was verified electronically.
[2017-03-16] MEDS: RESP: ALBUTEROL 2.5 MG/IPRATROPIUM 0.5 MG NEB (SCH) NEB ×3 (08:25→17:03)
[2017-03-16] MEDS: POLYETHYLENE GLYCOL 17 GM PKG PO SCH (09:00)
[2017-03-16] MEDS: SODIUM CHLORIDE 0.9% FLUSH 5 ML FLUSH IVF SCH (09:00)
[2017-03-16] MEDS: MAGNESIUM HYDROXIDE SUSP 30 ML CUP PO SCH (09:00)
[2017-03-16] MEDS: ASPIRIN EC 81 MG TABEC PO SCH (10:10)
[2017-03-16] MEDS: GABAPENTIN 300 MG CAP PO SCH (10:10)
[2017-03-16] MEDS: ENOXAPARIN SODIUM 30 MG/0.3 ML SYRINGE SQ SCH (10:10)
[2017-03-16] MEDS: DOCUSATE SODIUM 100 MG CAP PO SCH (10:10)
[2017-03-16] MEDS: GLIMEPIRIDE 2 MG TAB PO SCH (10:11)
[2017-03-16] MEDS: ATORVASTATIN 40 MG TAB PO SCH (10:12)
[2017-03-16] MEDS: ALPRAZolam 0.5 MG TAB PO SCH (10:12)
[2017-03-16] MEDS: PANTOPRAZOLE SOD 20 MG DELAYED RELEASE TAB PO SCH (10:12)
[2017-03-16] MEDS: MULTIVITAMINS/MINERALS THERAPEUTIC TAB PO SCH (10:12)
[2017-03-16] MEDS: LORATADINE 10 MG TAB PO SCH (10:12)
[2017-03-16] MEDS: ACETAMINOPHEN 325 MG TAB PO PRN (10:16)
--- NOTE | 2017-03-16 11:21 | PD.ORT.PN ---
Subjective Subjective Remarks No complaints today. Objective Vitals Vital Signs Date Time Temp Pulse Resp B/P Pulse Ox O2 Delivery O2 Flow Rate FiO2 03/16/17 08:25 93 03/16/17 08:00 99.5 102 18 127/75 98 03/16/17 04:00 98.2 97 17 124/60 97 03/16/17 00:00 100.4 104 17 119/67 97 03/15/17 23:00 101.5 03/15/17 20:15 100.5 115 17 134/66 95 03/15/17 20:02 94 21 03/15/17 16:00 97.9 104 16 164/79 96 03/15/17 12:20 95.3 99 16 118/59 99 I/O 03/15/17 03/15/17 03/15/17 03/16/17 03/16/17 03/16/17 07:00 15:00 23:00 07:00 15:00 23:00 Intake Total 120 ml 1280 ml 240 ml 120 ml Output Total 1800 ml 1100 ml Balance -1680 ml 180 ml 240 ml 120 ml Intake Oral 120 ml 1280 ml 240 ml 120 ml Output Urine Total 1800 ml 1100 ml # Voids 3 1 1 # Bowel Movements 0 0 1 Result Diagram: 03/15/17 2347 03/16/17 0538 Imaging Last 24 hours Impressions Chest X-Ray 03/16/17 0700 Signed Impressions: Service Date/Time: March 06:25 - CONCLUSION: No acute disease. There is no evidence of pneumonia. Javi Lane MD Objective Remarks wound clean and dry. Some erythema. No calf tenderness. Knee not hot to touch. NV intact to toes. No calf tenderness. Assessment & Plan Ortho Post Op Day #: 3 Problem List: Assessment and Plan Home today if patient remains afebrile. Will give Rx for doxcycline. Saeed Bruce MD March 16, 2017 11:21
[2017-03-16] MEDS ORDERED: DOXY100C PO (11:36)
--- NOTE | 2017-03-16 11:40 | HHI.DS ---
Discharge Summary Admission Date March 13, 2017 at 06:02 Discharge Date: March 16, 2017 Admitting Diagnosis Osteoarthritic degeneration right knee Diagnosis: (1) Status post right knee replacement Diagnosis: Principal Brief History This is a 62 year old male patient CBC/BMP: 03/15/17 2347 03/16/17 0538 Significant Findings Laboratory Tests Test 03/14/17 03/14/17 03/15/17 03/15/17 07:45 11:50 06:40 23:47 Hemoglobin 12.1 GM/DL 10.2 GM/DL 9.3 GM/DL (13.0-17.0) (13.0-17.0) (13.0-17.0) Hematocrit 35.4 % 28.6 % 26.9 % (39.0-51.0) (39.0-51.0) (39.0-51.0) Sodium Level 134 MEQ/L (136-145) Chloride Level 96 MEQ/L (98-107) Blood Urea Nitrogen 25 MG/DL (7-18) 23 MG/DL (7-18) Creatinine 3.09 MG/DL 1.49 MG/DL (0.60-1.30) (0.60-1.30) Estimat Glomerular Filtration 21 ML/MIN (>89) 48 ML/MIN (>89) Rate Calcium Level 8.2 MG/DL 8.1 MG/DL (8.5-10.1) (8.5-10.1) Random Glucose 114 MG/DL (74-106) Red Blood Count 3.11 MIL/MM3 (4.50-5.90) Platelet Count 108 TH/MM3 (150-450) Neutrophils (%) (Auto) 76.7 % (16.0-70.0) Monocytes (%) (Auto) 8.9 % (0.0-8.0) Test 03/16/17 05:38 Calcium Level 8.2 MG/DL (8.5-10.1) PE at Discharge wound clean and dry. Some erythema. No calf tenderness. Knee not hot to touch. NV intact to toes. No calf tenderness. Hospital Course Patient underwent a right total knee arthroplasty on day of admission. He received a course of prophylactic IV antibiotics and within 23 hours started on anticoagulation therapy. He continued to improve but had an episode of hypotension and kidney problems which was managed by the medical team. He began out of bed tolerating food and fluids well did have some episodes of low grade fever and on postoperative day 3 remained afebrile temperatures under 100. He received daily wound care on postoperative day 3 the wound was healing well with minimal erythema and no warmth. He was discharged home with home healthcare and physical therapy in good condition with instructions follow-up the office following week for recheck. Pt Condition on Discharge: Good Discharge Disposition: Disch w/ Home Health Serv Discharge Instructions Diet Instructions: Diabetic Diet Activities You Can Perform: Full Weight Bearing, Shower Only-No Bath Activities to Avoid: Bathing, Driving Saeed Bruce MD March 16, 2017 11:40
[2017-03-16] MEDS ORDERED: DOXYCYCLINE HYCLATE 100 MG CAP PO ONE (11:45)
--- NOTE | 2017-03-16 12:34 | HHI.PR ---
Subjective Remarks had some fever overnight. no cough or sob no dysuria no n/v/d Objective Vitals heart reg lung cta abd s/nt ext right knee with mild redness/warmth. Vital Signs Date Time Temp Pulse Resp B/P Pulse Ox O2 Delivery O2 Flow Rate FiO2 03/16/17 08:25 93 03/16/17 08:00 99.5 102 18 127/75 98 03/16/17 04:00 98.2 97 17 124/60 97 03/16/17 00:00 100.4 104 17 119/67 97 03/15/17 23:00 101.5 03/15/17 20:15 100.5 115 17 134/66 95 03/15/17 20:02 94 21 03/15/17 16:00 97.9 104 16 164/79 96 03/15/17 03/15/17 03/16/17 15:00 23:00 07:00 Intake Total 1280 ml 240 ml 120 ml Output Total 1100 ml Balance 180 ml 240 ml 120 ml Intake Oral 1280 ml 240 ml 120 ml Output Urine Total 1100 ml # Voids 3 1 1 # Bowel Movements 0 1 Result Diagram: 03/15/17 2347 03/16/17 0538 Imaging Last Impressions Knee X-Ray 03/13/17 0820 Signed Impressions: Service Date/Time: Monday, March 13, 2017 11:50 - CONCLUSION: Satisfactory appearance post right TKA Sergey Pandey MD A/P Problem List: (1) Status post right knee replacement Status: Acute Plan: - Pt s/p right total knee arthroplasty on 03/13/[address] Bruce - Post-op pain control per Ortho - PT daily - IS - DVT prophylaxis post op developed hypotension and urine retention. then had halicat. found to have priya. bp and priya improving with ivf. held bp meds.Today renal function back to nml has some fever overnight. Dr Bruce to cover the right knee with doxy. inc spirometer. check u/a prior to d/c home later today (2) Diabetes Status: Chronic Plan: - NovoLog SSI - Pt takes Metformin 1000mg po BID and Amaryl 2mg po Daily (3) HTN (hypertension), benign Status: Chronic Plan: see above (4) Asthma Status: Chronic Problem Qualifiers (1) Diabetes: Seth Vargas MD March 16, 2017 12:34 Assessment and Plan as above Problem Qualifiers (1) Diabetes: Seth Vargas MD March 16, 2017 12:34
[2017-03-16 17:02] LABS: BLOOD, URINE SMALL (NEG); COMMENT (UR) CULT NOT INDICATED; CULTURE IF INDICATED CULT NOT INDICATED; GLUCOSE,URINE NEG (NEG); KETONE, URINE NEG (NEG); NITRITE,URINE NEG (NEG); PH, URINE 6.5 (5.0-8.5); URINE COLOR YELLOW (YELLW/STRAW)
== END 2017-03-16 18:58 | disposition home health service (06) | DRG 470 ==
LOC: HSDI 03-13 06:02 → N06B 03-13 12:38
PROVIDERS: ADMIT Surgery; ATTEND Surgery
PROC: 0SRC0J9 Replacement of Right Knee Joint with Synthetic Substitute, Cemented, Open Approach (ICD-10-PCS; principal; 2017-03-13 08:17)
DX: M17.11 Unilateral primary osteoarthritis, right knee (principal); N17.9 Acute kidney failure, unspecified; E11.40 Type 2 diabetes mellitus with diabetic neuropathy, unspecified; K76.0 Fatty (change of) liver, not elsewhere classified; I95.9 Hypotension, unspecified; Z68.41 Body mass index [BMI] 40.0-44.9, adult; Z79.84 Long term (current) use of oral hypoglycemic drugs; E66.01 Morbid (severe) obesity due to excess calories; I10 Essential (primary) hypertension; F17.210 Nicotine dependence, cigarettes, uncomplicated; E78.5 Hyperlipidemia, unspecified; N40.1 Benign prostatic hyperplasia with lower urinary tract symptoms; R33.9 Retention of urine, unspecified; Z72.89 Other problems related to lifestyle; R50.9 Fever, unspecified; Z86.73 Personal history of transient ischemic attack (TIA), and cerebral infarction without residual deficits; L40.9 Psoriasis, unspecified; K21.9 Gastro-esophageal reflux disease without esophagitis; M10.9 Gout, unspecified; Z79.82 Long term (current) use of aspirin
CPT/HCPCS: 71010; 73560; 80048; 81001; 82948; 85014; 85018; 85025; 86850; 86900; 86901; 87040; 87205; 94150; 94640; 94664; C1776; C9290; J0690; J1650; J1815; J2250; J2270; J2370; J2405; J2710; J3010; J7030; J7120; L1830

== ENCOUNTER → 2017-03-06 | Outpatient (CLI) | payer MEDICARE ==
[~2017-03-06] MED LIST changes: +ALLO100T PO; +ALPR0.5T3 PO; +AMLO5TAB2 PO; +ASPI1TAB69 PO; +ATOR40TA16 PO; +CEPH500C3 PO; +CPMMACHINE; +DOXY100C PO; +FISH1000 PO; +FLUO.05%ST TOPICAL; +FURO40TA PO; +GABA600T PO; +GLIM2TAB PO; +HYDR-2768 PO; +LORTA5 PO; +LOSA100T PO; +METF1000 PO; +METO25TA3 PO; +MISC-163; +WALKER WHEELS/F1 MIS; +[UNRECOGNIZED DRUG - CODE] TOPICAL
[2017-03-06 08:56] LABS: AUTOMATED NEUTROPHIL # 3.9 TH/MM3 (1.8-7.7); BASOPHIL % 0.7 % (0.0-2.0); EOSINOPHIL # 0.1 TH/MM3 (0-0.4); EOSINOPHIL % 2.2 % (0.0-4.0); HEMATOCRIT 42.3 % (39.0-51.0); HEMO FLAGS DIFF FINAL; LYMPHOCYTE # 1.3 TH/MM3 (1.0-4.8); MEAN CELL VOLUME 85.7 FL (80.0-100.0); MEAN CORPUSCULAR HEMOGLOBIN 29.8 PG (27.0-34.0); MEAN CORPUSCULAR HGB CONC 34.7 % (32.0-36.0); MONO % 7.6 % (0.0-8.0); NEUT % 66.5 % (16.0-70.0); PLATELET COUNT 167 TH/MM3 (150-450); RED BLOOD COUNT 4.94 MIL/MM3 (4.50-5.90); WHITE BLOOD COUNT 5.8 TH/MM3 (4.0-11.0)
[2017-03-06 08:58] LABS: BLOOD, URINE NEG (NEG); COMMENT (UR) CULT NOT INDICATED; CULTURE IF INDICATED CULT NOT INDICATED; GLUCOSE,URINE NEG (NEG); HYALINE CAST, URINE 2 /lpf (RARE); KETONE, URINE NEG (NEG); MUCUS URINE FEW /lpf (OCC); NITRITE,URINE NEG (NEG); URINE COLOR LIGHT-YELLOW (YELLW/STRAW)
[2017-03-06 09:08] LABS: APTT (PATIENT) 25.7 SEC (24.3-30.1); PROTHROMBIN TIME - PATIENT 11.3 SEC (9.8-11.6)
[2017-03-06 09:31] LABS: ALKALINE PHOSPHATASE 93 U/L (45-117); ALT (GPT) 41 U/L (12-78); ANION GAP 8 MEQ/L (5-15); AST (GOT) 24 U/L (15-37); BICARBONATE 33.6 MEQ/L (21.0-32.0); BLOOD UREA NITROGEN 15 MG/DL (7-18); CHLORIDE 102 MEQ/L (98-107); GLOMERULAR FILTRATION RATE 77 ML/MIN (>89); GLUCOSE,FASTING 102 MG/DL (74-99); POTASSIUM 4.3 MEQ/L (3.5-5.1); SODIUM (NA) 144 MEQ/L (136-145); TOTAL BILIRUBIN ADULT 0.6 MG/DL (0.2-1.0)
--- NOTE | 2017-03-06 14:33 | EKG ---
Date Performed: 03/06/2017 Time Performed: 08:20:42 PTAGE: 62 years EKG: Sinus rhythm WITH MARKED SINUS ARRHYTHMIA LOW QRS VOLTAGE IN PRECORDIAL LEADS INCOMPLETE RIGHT BUNDLE BRANCH BLOC K BORDERLINE ECG PREVIOUS TRACING : 12/12/2013 08.38 Compared to prior tracing no significant change DOCTOR: Rai Randle Interpretating Date/Time 03/06/2017 14:28:24
== END ==
LOC: CPRE 07:54
PROVIDERS: ATTEND Surgery
DX: Z01.810 Encounter for preprocedural cardiovascular examination (principal); Z01.812 Encounter for preprocedural laboratory examination; R94.31 Abnormal electrocardiogram [ECG] [EKG]
CPT/HCPCS: 36415; 80053; 81001; 85025; 85610; 85730; 93005

== ENCOUNTER → 2018-01-08 | Day surgery (SDC) | payer MEDICARE ==
[~2018-01-08] MED LIST changes: -ALPR0.5T99 PO; -AMLO5TAB96 PO; -ASPI81 PO; -ATOR40TA PO; -CEPH500C3 PO; -COZA100T PO; -FISHOIL PO; -FLUO.05%ST TOP; -GLUCTAB PO; -HYDR-2768 PO; +LACTATED RINGER'S 1000 ML INJ 1,000 ML ONE; -LASI20TA PO; -LORTA5 PO; -NEUR600T PO; -OMEP20TA PO; +OMEP20TA93 PO; -TOPR25TA2 PO; -[UNRECOGNIZED DRUG - CODE] TOP
== END | disposition home or self-care (01) ==
LOC: ESDC 11:43
PROVIDERS: ATTEND Internal Medicine Gastroenterology
DX: R10.13 Epigastric pain (principal); K31.9 Disease of stomach and duodenum, unspecified; Z12.11 Encounter for screening for malignant neoplasm of colon; Z86.010 Personal history of colon polyps; K57.90 Diverticulosis of intestine, part unspecified, without perforation or abscess without bleeding; K64.8 Other hemorrhoids
CPT/HCPCS: 00813; 43239; 45378; 88305; 88312; 93005; J7120